=== PATIENT | female | born 1930 | race African-American/Black ===

== ENCOUNTER 2018-09-03 13:42 | Emergency (ER) | payer MEDICARE, OTHER | END 2018-09-03 14:30 | disposition home or self-care (01) | LOC: ERS 13:42 | DX: M54.2 Cervicalgia (principal); E11.9 Type 2 diabetes mellitus without complications; I10 Essential (primary) hypertension; Z79.84 Long term (current) use of oral hypoglycemic drugs; Z79.899 Other long term (current) drug therapy | CPT/HCPCS: 99283 ==

== ENCOUNTER 2018-10-01 17:11 | Outpatient (CLI) | payer MEDICARE ==
--- NOTE | 2018-10-01 17:50 | RAD ---
CERVICAL SPINE: HISTORY: Cervicalgia. Rheumatoid arthritis. TECHNIQUE: A total of 8 images. FINDINGS: Moderate degenerative changes of the cervical spine noted. There is loss of disk space at all levels of the cervical spine, and there are prominent osteophytes and posterior spondylitic changes through out the cervical spine. The posterior spondylosis is most pronounced at the C4-C5, C5-C6, and C6-C7 levels. The spondylitic changes at these levels appear to encroach into the spinal canal. There is evidence of foraminal encroachment on the oblique views at these levels. 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 Consider further evaluation with CT for bet ter delineation of the osseous hypertrophic changes. POS: [facility]
== END 2018-10-01 17:12 | disposition home or self-care (01) ==
LOC: RAD 17:11
PROVIDERS: ATTEND Internal Medicine Rheumatology
DX: M06.09 Rheumatoid arthritis without rheumatoid factor, multiple sites (principal); M54.2 Cervicalgia; M47.812 Spondylosis without myelopathy or radiculopathy, cervical region
CPT/HCPCS: 72052